=== PATIENT | female | born 1995 | race Caucasian/White ===

== ENCOUNTER 2021-10-07 20:11 | Emergency (ER) | payer MEDICAID ==
[~2021-10-07] VITALS: Ht 167.6 cm; Wt 90.9 kg
[2021-10-07] MEDS ORDERED: LIDOCAINE/PF 1% 2 ML VIAL IM ONE (22:15)
[2021-10-07] MEDS ORDERED: DOXYCYCLINE HYCLATE 100 MG TABLET PO ONE (22:15)
[2021-10-07] MEDS ORDERED: CefTRIAXone SODIUM 1 GM/VIAL IM ONE (22:15)
[2021-10-07 23:00] VITALS: BP 128/82
== END 2021-10-07 23:27 | disposition home or self-care (01) ==
LOC: EMS 20:13
DX: L03.116 Cellulitis of left lower limb (principal); A64 Unspecified sexually transmitted disease; N61.0 Mastitis without abscess; F31.9 Bipolar disorder, unspecified; F17.210 Nicotine dependence, cigarettes, uncomplicated; F12.90 Cannabis use, unspecified, uncomplicated
CPT/HCPCS: 81025; 87491; 87591; 96372; 99283; J0696; J3490